=== PATIENT | female | born 1935 | race Caucasian/White ===

== ENCOUNTER 2017-02-12 09:49 | Observation (INO) | payer OTHER ==
[~2017-02-12] VITALS: Ht 162.6 cm; Wt 54.8 kg
[~2017-02-12 09:49] MED LIST: ACETAMINOPHEN500 MG PO; ADVAIR 250/501 DISK IH; ALPRAZOLAM0.25 M2 PO; ALPRAZOLAM0.25 MG PO; BISCOLAX10 MG RC; CARDIZEM CD,CA240 M1 PO; CARDIZEM CD,CA240 MG PO; CARDIZEM CD240 MG PO; COL-RITE100 MG PO; COLACE100 MG PO; COMBIVENT INH14.7 GM IH; COMBIVENT RESPIM4 GM IH; COMBIVENT200 INHALA IH; COUMADIN,JANTO2.5 MG PO; COUMADIN,JANTOVE5 MG PO; Cardizem CD,Cartia X PO; Colace PO; DIGITEK125 MC2 PO; DIGOX125 MCG; DIGOX125 MCG PO; DIGOXIN125 MCG PO; DILTIAZEM; DILTIAZEM 24HR240 MG PO; DOCUSATE SODIU100 MG PO; FLOVENT 11120 INHALA IH; FLOVENT DISKUS1 DISK IH; FLOVENT DISKUS50 MCG IH; FORADIL AEROLI12 MCG IH; HYDROCHLOROTHIA25 MG PO; INCRUSE ELLI62.5 MCG IH; JANUVIA100 MG PO; K-DUR20 MEQ PO; KLOR-CON20 MEQ; KLOR-CON20 MEQ PO; LANOXIN125 MCG PO; LANSOPRAZOLE15 MG PO; LEVAQUIN500 MG PO; LEVOFLOXACIN500 MG PO; LIPITOR20 MG PO; Lanoxin,Digitek PO; Levaquin PO; MIRALAX17 GM PO; MIRTAZAPINE15 MG PO; MIRTAZAPINE7.5 MG PO; NEXIUM40 MG PO; PANTOPRAZOLE SO40 MG PO; POTASSIUM; PRADAXA150 MG PO; PREDNISONE10 MG PO; PREDNISONE50 MG PO; PREVACID 24HR15 MG PO; PRILOSEC20 MG PO; PROTONIX40 MG PO; PROVENTIL,2.5 MG/3 M IH; PROVENTIL2.5 MG/3 M IH; Pradaxa PO; REMERON15 M2 PO; SCOT-TUSSI10 MG/5 ML PO; SIMVASTATIN40 MG PO; SPIRIVA RESPIMAT4 GM IH; SPIRIVA1 INHALATI IH; STOOL SOFTENER100 MG PO; TRAMADOL HCL50 MG PO; TYLENOL EXTRA500 MG PO; WOMENS STOOL S100 MG PO; XANAX0.25 MG PO; XARELTO15 MG PO; Xarelto PO; ZOFRAN ODT4 MG PO; ZOLOFT25 MG PO; ZYRTEC10 M3 PO
[2017-02-12] MEDS ORDERED: ELIQUIS5 MG PO (10:30)
[2017-02-12 10:31] LABS: EOSINOPHIL (%) 0.8 % (0-5); EOSINOPHIL COUNT 0.1 K/uL (0-0.3); HEMATOCRIT 36.9 % (36.0-46.0); IMMATURE GRANULOCYTE (%) 0.5 % (0.0-0.7); INSTRUMENT ABS NEUTROPHIL CT 5.2 K/uL; LYMPHOCYTE COUNT 2.2 K/uL (1.0-2.8); MCH 23.8 PG (29.0-34.0); MCHC 30.6 G/DL (30.0-36.0); MCV 77.7 FL (83-99); MEAN PLAT.VOLUME 9.3 uM^3 (9.5-12.4); MONOCYTE (%) 12.9 % (3-12); MONOCYTE COUNT 1.1 K/uL (0-0.8); NEUTROPHIL COUNT 5.2 K/uL (1.8-6.4); PLATELET COUNT 263 K/uL (156-360); RBC DIS.WIDTH-CV 16.5 % (11.8-14.6); RBC DIS.WIDTH-SD 46.3 % (39-53); RED BLOOD COUNT 4.75 M/uL (3.80-5.20); WHITE BLOOD COUNT 8.7 K/uL (4.1-10.2)
[2017-02-12 10:39] LABS: CHLORIDE 101 mEq/L (99-109); POTASSIUM 5.1 mEq/L (3.7-5.4); SODIUM 138 mEq/L (136-147)
[2017-02-12 10:40] LABS: D-DIMER ELISA 0.37 mg/L FEU (< 0.57); INTER. NORMALIZED RATIO 1.1; PROTHROMBIN TIME 11.3 (9.2-11.2); PTT 30.8 (25-32)
[2017-02-12 10:41] LABS: GLUCOSE 123 mg/dL (70-99)
[2017-02-12 10:42] LABS: ANION GAP 10 MEQ/L (2-14)
[2017-02-12 10:45] LABS: GFR ESTIMATE (CALCULATED) > 59 mL/min/
[2017-02-12 10:46] LABS: UREA NITROGEN (BUN) 10 mg/dL (9-23)
[2017-02-12 10:49] LABS: TROP-I INTERPRETATION NEGATIVE; TROPONIN-I 0.01 ng/mL (0.0-0.30)
[2017-02-12] MEDS ORDERED: DILTIAZEM 24HR240 MG PO (12:18)
[2017-02-12] MEDS ORDERED: ONDANSETRON ODT4 MG PO (12:21)
[2017-02-12] MEDS ORDERED: MIRTAZAPINE7.5 MG PO (12:22)
[2017-02-12] MEDS ORDERED: SALINE NASAL SP45 ML BOTH NARES (12:22)
[2017-02-12] MEDS ORDERED: ZYRTEC10 M3 PO (12:22)
[2017-02-12 12:55] VITALS: BP 167/75
[2017-02-12 15:27] VITALS: BP 138/81
[2017-02-12 17:27] LABS: POINT-OF-CARE METER ID UU13113831
[2017-02-12 17:55] LABS: TROP-I INTERPRETATION NEGATIVE; TROPONIN-I 0.02 ng/mL (0.0-0.30)
[2017-02-12 19:20] VITALS: BP 138/61
[2017-02-12 21:24] LABS: POINT-OF-CARE METER ID UU14162513
[2017-02-12 23:29] LABS: TROP-I INTERPRETATION NEGATIVE; TROPONIN-I < 0.01 ng/mL (0.0-0.30)
[2017-02-13 00:09] VITALS: BP 126/61
[2017-02-13 04:15] VITALS: BP 144/73
[2017-02-13 07:16] VITALS: BP 142/68
[2017-02-13 08:08] LABS: POINT-OF-CARE METER ID UU13113831
[2017-02-13 08:14] VITALS: BP 144/75
[2017-02-13 09:10] VITALS: BP 128/69
[2017-02-13] MEDS ORDERED: PREDNISONE10 MG PO (09:38)
[2017-02-13] MEDS ORDERED: LEVOFLOXACIN750 MG PO (09:38)
== END 2017-02-13 11:21 | disposition home or self-care (01) ==
LOC: EME 09:49 → EDOF 12:11 → 5WEST 12:11 → EDOF 12:11 → 5WEST 12:49
PROVIDERS: Emergency Medicine; Family Medicine; Internal Medicine
DX: J44.1 Chronic obstructive pulmonary disease with (acute) exacerbation (principal); J44.0 Chronic obstructive pulmonary disease with (acute) lower respiratory infection; J20.9 Acute bronchitis, unspecified; J45.901 Unspecified asthma with (acute) exacerbation; D64.9 Anemia, unspecified; E11.9 Type 2 diabetes mellitus without complications; I10 Essential (primary) hypertension; E78.5 Hyperlipidemia, unspecified; I48.91 Unspecified atrial fibrillation; K21.9 Gastro-esophageal reflux disease without esophagitis; G89.29 Other chronic pain; M54.9 Dorsalgia, unspecified; F41.9 Anxiety disorder, unspecified
CPT/HCPCS: 71010; 80048; 80162; 82948; 83880; 84484; 85025; 85379; 85610; 85730; 93005; 93306; 94640; 94640 76; 99202; 99281; 99285; G0378; J1815; J2930

== ENCOUNTER 2017-06-16 20:54 | Emergency (ER) | payer OTHER ==
[~2017-06-16] VITALS: Ht 162.6 cm; Wt 52.5 kg
[~2017-06-16 20:54] MED LIST changes: +ELIQUIS5 MG PO; +LEVOFLOXACIN750 MG PO; +ONDANSETRON ODT4 MG PO; +SALINE NASAL SP45 ML BOTH NARES
[2017-06-17 01:34] LABS: HEMATOCRIT 31.7 % (36.0-46.0); MCH 22.4 PG (29.0-34.0); MCHC 29.7 G/DL (30.0-36.0); MCV 75.7 FL (83-99); PLATELET COUNT 280 K/uL (156-360); RBC DIS.WIDTH-CV 15.6 % (11.8-14.6); RBC DIS.WIDTH-SD 42.5 % (39-53); RED BLOOD COUNT 4.19 M/uL (3.80-5.20); WHITE BLOOD COUNT 10.4 K/uL (4.1-10.2)
[2017-06-17 01:46] LABS: CHLORIDE 98 mEq/L (99-109); POTASSIUM 5.1 mEq/L (3.7-5.4); SODIUM 136 mEq/L (136-147)
[2017-06-17 01:48] LABS: GLUCOSE 119 mg/dL (70-99)
[2017-06-17 01:49] LABS: ANION GAP 12 MEQ/L (2-14)
[2017-06-17 01:50] LABS: TOTAL BILIRUBIN 0.3 mg/dL (0.0-1.0)
[2017-06-17 01:52] LABS: ALKALINE PHOSPHATASE 76 IU/L (3-129); GFR ESTIMATE (CALCULATED) > 59 mL/min/
[2017-06-17 01:53] LABS: UREA NITROGEN (BUN) 13 mg/dL (9-23)
[2017-06-17 01:55] LABS: LIPASE 6 U/L (1.0-51.0)
[2017-06-17 02:28] LABS: ADD MIUA? NO; BILIRUBIN NEGATIVE; BLOOD NEGATIVE; COLOR STRAW ((YELLOW)); GLUCOSE (STRIP) NEGATIVE; KETONES NEGATIVE; LEUKOCYTES NEGATIVE; NITRITE NEGATIVE; PROTEIN (STRIP) NEGATIVE; SPECIFIC GRAVITY 1.005 (1.000-1.030); UCUL ADDED? NO; UROBILINOGEN 0.2 MG/DL (0.2-1.0)
[2017-06-17] MEDS ORDERED: ULTRAM50 MG PO (02:34)
[2017-06-17] MEDS ORDERED: LIDODERM 5% P1 PATCH TD (02:34)
[2017-06-17 03:03] VITALS: BP 128/58
== END 2017-06-17 03:04 | disposition home or self-care (01) ==
LOC: EME 20:54 → RME 20:54
PROVIDERS: Physician Assistant
DX: M54.5 Low back pain (principal); G89.29 Other chronic pain; R63.4 Abnormal weight loss; I48.91 Unspecified atrial fibrillation; Z79.01 Long term (current) use of anticoagulants; E11.9 Type 2 diabetes mellitus without complications; Z79.84 Long term (current) use of oral hypoglycemic drugs; J44.9 Chronic obstructive pulmonary disease, unspecified; E78.5 Hyperlipidemia, unspecified; K21.9 Gastro-esophageal reflux disease without esophagitis; F32.9 Major depressive disorder, single episode, unspecified
CPT/HCPCS: 71020; 72128; 80053; 81003; 83690; 85027; 99281; 99284

== ENCOUNTER 2017-07-21 08:43 | Inpatient (IN) | payer OTHER ==
[~2017-07-21] VITALS: Ht 154.9 cm; Wt 51.6 kg
[2017-07-21] VITALS (13 sets, daily range): BP systolic 132–156; BP diastolic 60–79
[~2017-07-21 08:43] MED LIST changes: +LIDODERM 5% P1 PATCH TD; +ULTRAM50 MG PO
[2017-07-21 09:52] LABS: INTER. NORMALIZED RATIO 1.5; PROTHROMBIN TIME 16.7 SEC (10.2-12.9)
[2017-07-21 09:55] LABS: PTT 35.2 SEC (25-37)
[2017-07-21 10:01] LABS: CHLORIDE 96 mEq/L (99-109); POTASSIUM 4.3 mEq/L (3.7-5.4); SODIUM 130 mEq/L (136-147)
[2017-07-21 10:03] LABS: EOSINOPHIL (%) 0.3 % (0-5); GLUCOSE 121 mg/dL (70-99); HEMATOCRIT 22.9 % (36.0-46.0); IMMATURE GRANULOCYTE COUNT 0.1 K/uL; INSTRUMENT ABS NEUTROPHIL CT 7.4 K/uL; MCH 21.1 PG (29.0-34.0); MCHC 29.7 G/DL (30.0-36.0); MCV 71.1 FL (83-99); MEAN PLAT.VOLUME 9.7 uM^3 (9.5-12.4); MONOCYTE (%) 7.7 % (3-12); MONOCYTE COUNT 0.7 K/uL (0-0.8); NEUTROPHIL (%) 80.3 % (45-76); NEUTROPHIL COUNT 7.4 K/uL (1.8-6.4); NRBC (%) 0.2 /100 WBC (0-0); PLATELET COUNT 293 K/uL (156-360); RBC DIS.WIDTH-SD 41.6 % (39-53); RED BLOOD COUNT 3.22 M/uL (3.80-5.20); WHITE BLOOD COUNT 9.3 K/uL (4.1-10.2)
[2017-07-21 10:04] LABS: ANION GAP 10 MEQ/L (2-14)
[2017-07-21 10:07] LABS: GFR ESTIMATE (CALCULATED) > 59 mL/min/; UREA NITROGEN (BUN) 11 mg/dL (9-23)
[2017-07-21 10:08] LABS: TROP-I INTERPRETATION NEGATIVE; TROPONIN-I < 0.01 ng/mL (0.0-0.30)
[2017-07-21 10:15] LABS: DIGOXIN 0.9 ng/mL (0.8-2.0)
[2017-07-21 11:46] LABS: RETIC HGB EQUIVALENT 18.3 (28-36); RETICULOCYTE COUNT 2.6 % (0.5-1.8)
[2017-07-21] MEDS ORDERED: PRILOSEC20 MG PO (11:54)
[2017-07-21] MEDS ORDERED: METFORMIN HCL500 MG PO (11:59)
[2017-07-21] MEDS ORDERED: MECLIZINE HCL25 MG PO (11:59)
[2017-07-21 12:37] LABS: IRON 18 MCG/DL (35-150); SAMPLE HEMOLYSIS CHECK 0; SAMPLE ICTERIC CHECK 0; SAMPLE LIPEMIA CHECK 0
[2017-07-21 12:50] LABS: FERRITIN 11 NG/ML (10-291)
[2017-07-21 16:51] LABS: TROP-I INTERPRETATION NEGATIVE; TROPONIN-I 0.01 ng/mL (0.0-0.30)
[2017-07-21 19:35] LABS: POINT-OF-CARE METER ID UU14174225
[2017-07-22 00:02] LABS: HEMATOCRIT 32.8 % (36.0-46.0); MCV 75.6 FL (83-99)
[2017-07-22 00:18] LABS: TROP-I INTERPRETATION NEGATIVE; TROPONIN-I < 0.01 ng/mL (0.0-0.30)
[2017-07-22 03:38] VITALS: BP 123/65
[2017-07-22 06:13] LABS: HEMATOCRIT 30.6 % (36.0-46.0); MCH 24.1 PG (29.0-34.0); MCHC 31.7 G/DL (30.0-36.0); MCV 76.1 FL (83-99); MEAN PLAT.VOLUME 9.8 uM^3 (9.5-12.4); NRBC (%) 0.2 /100 WBC (0-0); PLATELET COUNT 255 K/uL (156-360); RBC DIS.WIDTH-CV 18.4 % (11.8-14.6); RBC DIS.WIDTH-SD 50.3 % (39-53); WHITE BLOOD COUNT 9.1 K/uL (4.1-10.2)
[2017-07-22 06:28] LABS: RED BLOOD COUNT 4.02 M/uL (3.80-5.20)
[2017-07-22 06:49] LABS: ANION GAP 9 MEQ/L (2-14); CHLORIDE 98 MEQ/L (99-109); GFR ESTIMATE (CALCULATED) > 59 mL/min/; GLUCOSE 133 mg/dL (70-99); POTASSIUM 4.2 MEQ/L (3.7-5.4); SAMPLE HEMOLYSIS CHECK 0; SAMPLE ICTERIC CHECK 0; SAMPLE LIPEMIA CHECK 0; UREA NITROGEN (BUN) 13 mg/dL (9-23)
[2017-07-22 06:50] LABS: SODIUM 138 MEQ/L (136-147)
[2017-07-22 07:32] LABS: POINT-OF-CARE METER ID UU14188625
[2017-07-22 07:33] VITALS: BP 125/67
[2017-07-22 11:09] VITALS: BP 124/58
[2017-07-22 11:12] LABS: POINT-OF-CARE METER ID UU13113717
[2017-07-22 14:30] VITALS: BP 122/62
[2017-07-22 17:15] LABS: POINT-OF-CARE METER ID UU13113819
[2017-07-22 18:15] LABS: POINT-OF-CARE METER ID UU14188625
[2017-07-22 20:00] VITALS: BP 124/62
[2017-07-23 00:01] VITALS: BP 123/65
[2017-07-23 03:53] VITALS: BP 130/70
[2017-07-23 08:18] VITALS: BP 131/62
[2017-07-23 09:54] LABS: HEMATOCRIT 39.2 % (36.0-46.0); MCH 23.8 PG (29.0-34.0); MCHC 30.9 G/DL (30.0-36.0); MEAN PLAT.VOLUME 9.3 uM^3 (9.5-12.4); RBC DIS.WIDTH-CV 18.6 % (11.8-14.6); RBC DIS.WIDTH-SD 49.5 % (39-53); WHITE BLOOD COUNT 14.1 K/uL (4.1-10.2)
[2017-07-23 10:04] LABS: PLATELET COUNT 346 K/uL (156-360); RED BLOOD COUNT 5.09 M/uL (3.80-5.20)
[2017-07-23 10:11] LABS: ANION GAP 12 MEQ/L (2-14); CHLORIDE 96 MEQ/L (99-109); GFR ESTIMATE (CALCULATED) > 59 mL/min/; GLUCOSE 120 mg/dL (70-99); POTASSIUM 4.6 MEQ/L (3.7-5.4); SAMPLE HEMOLYSIS CHECK 0; SAMPLE ICTERIC CHECK 0; SAMPLE LIPEMIA CHECK 0; SODIUM 139 MEQ/L (136-147); UREA NITROGEN (BUN) 13 mg/dL (9-23)
[2017-07-23 11:21] VITALS: BP 136/67
[2017-07-23 15:55] LABS: POINT-OF-CARE METER ID UU13113675
[2017-07-23 16:55] LABS: POINT-OF-CARE METER ID UU13113717
[2017-07-23 20:03] VITALS: BP 137/65
[2017-07-24] VITALS: BP 119/73
[2017-07-24 03:52] VITALS: BP 119/66
[2017-07-24 07:22] VITALS: BP 124/56
[2017-07-24 07:39] LABS: POINT-OF-CARE METER ID UU14174225
[2017-07-24] MEDS ORDERED: FERROUS SULFAT325 MG PO (14:53)
[2017-07-24] MEDS ORDERED: LIDOCAINE1 EACH TD (14:56)
[2017-07-24 15:07] VITALS: BP 111/62
== END 2017-07-24 16:36 | disposition home or self-care (01) | DRG 292 ==
LOC: EME 08:43 → EDOF 11:20 → 5SOUTH 11:20 → ENRESERV 11:28 → 5SOUTH 13:36
PROVIDERS: Emergency Medicine; Internal Medicine; Specialist
DX: I11.0 Hypertensive heart disease with heart failure (principal); I50.9 Heart failure, unspecified; D50.9 Iron deficiency anemia, unspecified; K29.70 Gastritis, unspecified, without bleeding; K31.7 Polyp of stomach and duodenum; K55.20 Angiodysplasia of colon without hemorrhage; K64.8 Other hemorrhoids; J44.9 Chronic obstructive pulmonary disease, unspecified; I48.1 Persistent atrial fibrillation; I08.1 Rheumatic disorders of both mitral and tricuspid valves; I27.2 Other secondary pulmonary hypertension; E11.9 Type 2 diabetes mellitus without complications; E78.5 Hyperlipidemia, unspecified; K21.9 Gastro-esophageal reflux disease without esophagitis; F41.9 Anxiety disorder, unspecified; F32.9 Major depressive disorder, single episode, unspecified; M19.90 Unspecified osteoarthritis, unspecified site; Z77.22 Contact with and (suspected) exposure to environmental tobacco smoke (acute) (chronic); Z79.84 Long term (current) use of oral hypoglycemic drugs; Z82.49 Family history of ischemic heart disease and other diseases of the circulatory system; Z83.3 Family history of diabetes mellitus
CPT/HCPCS: 71010; 71020; 74250; 80048; 80162; 82272; 82607; 82728; 82746; 82948; 83540; 83880; 84466; 84484; 85014; 85018; 85025; 85027; 85045; 85610; 85730; 86870; 86900; 86901; 86905; 86920; 88305; 88342 TC; 93005; 93306; 94640; 94640 76; 94760; 94799; 99202; 99281; 99284; C9113; J1815; J1940; P9016

== ENCOUNTER 2018-02-09 06:40 | Inpatient (IN) | payer OTHER ==
[~2018-02-09] VITALS: Ht 162.6 cm; Wt 47.4 kg
[~2018-02-09 06:40] MED LIST changes: +FERROUS SULFAT325 MG PO; +LIDOCAINE1 EACH TD; +MECLIZINE HCL25 MG PO; +METFORMIN HCL500 MG PO
[2018-02-09 07:23] LABS: BASOPHIL (%) 0.2 % (0-1); EOSINOPHIL (%) 0.7 % (0-5); EOSINOPHIL COUNT 0.1 K/uL (0-0.3); HEMATOCRIT 43.7 % (36.0-46.0); IMMATURE GRANULOCYTE (%) 0.4 % (0.0-0.7); LYMPHOCYTE (%) 31.3 % (15-42); LYMPHOCYTE COUNT 2.8 K/uL (1.0-2.8); MCH 28.9 PG (29.0-34.0); MCHC 34.3 G/DL (30.0-36.0); MCV 84.2 FL (83-99); MONOCYTE (%) 10.6 % (3-12); NEUTROPHIL (%) 56.8 % (45-76); NEUTROPHIL COUNT 5.1 K/uL (1.8-6.4); PLATELET COUNT 256 K/uL (156-360); RBC DIS.WIDTH-CV 13.3 % (11.8-14.6); RBC DIS.WIDTH-SD 41.3 % (39-53); RED BLOOD COUNT 5.19 M/uL (3.80-5.20); WHITE BLOOD COUNT 9.1 K/uL (4.1-10.2)
[2018-02-09 07:29] LABS: INTER. NORMALIZED RATIO 1.6
[2018-02-09 07:32] LABS: PTT 38.9 SEC (25-37)
[2018-02-09 07:41] LABS: CHLORIDE 101 mEq/L (99-109); POTASSIUM 3.9 mEq/L (3.7-5.4); SODIUM 140 mEq/L (136-147)
[2018-02-09 07:43] LABS: GLUCOSE 119 mg/dL (70-99)
[2018-02-09 07:45] LABS: TROP-I INTERPRETATION NEGATIVE; TROPONIN-I < 0.01 ng/mL (0.0-0.30)
[2018-02-09 07:47] LABS: CREATININE 0.8 mg/dL (0.6-1.3); GFR ESTIMATE (CALCULATED) > 59 mL/min/
[2018-02-09 07:48] LABS: UREA NITROGEN (BUN) 11 mg/dL (9-23)
[2018-02-09 07:55] LABS: DIGOXIN 0.7 ng/mL (0.8-2.0)
[2018-02-09] MEDS ORDERED: LIDOCARE1 EACH TP (09:03)
[2018-02-09] MEDS ORDERED: WOMEN'S 50 PLU1 EACH PO (09:06)
[2018-02-09] MEDS ORDERED: ELIQUIS5 MG PO (09:06)
[2018-02-09] MEDS ORDERED: PROBIOTIC1 EAC1 PO (09:07)
[2018-02-09 12:29] LABS: TROP-I INTERPRETATION NEGATIVE; TROPONIN-I < 0.01 ng/mL (0.0-0.30)
[2018-02-09 14:45] LABS: APPEARANCE CLEAR ((CLEAR)); BILIRUBIN NEGATIVE; BLOOD NEGATIVE; COLOR YELLOW ((YELLOW)); GLUCOSE (STRIP) NEGATIVE; KETONES 20; LEUKOCYTES NEGATIVE; NITRITE NEGATIVE; PROTEIN (STRIP) 30; SPECIFIC GRAVITY 1.009 (1.000-1.030); UCUL ADDED? NO; UROBILINOGEN 0.2 MG/DL (0.2-1.0)
[2018-02-09 15:35] VITALS: BP 139/74
[2018-02-09 19:10] VITALS: BP 161/84
[2018-02-09 20:27] LABS: TROP-I INTERPRETATION NEGATIVE; TROPONIN-I < 0.01 ng/mL (0.0-0.30)
[2018-02-09 23:20] VITALS: BP 142/63
[2018-02-10 04:36] VITALS: BP 120/59
[2018-02-10 05:31] LABS: HEMATOCRIT 41.8 % (36.0-46.0); MCH 28.2 PG (29.0-34.0); MCHC 33.5 G/DL (30.0-36.0); MCV 84.1 FL (83-99); PLATELET COUNT 287 K/uL (156-360); RBC DIS.WIDTH-CV 13.3 % (11.8-14.6); RBC DIS.WIDTH-SD 41.1 % (39-53); RED BLOOD COUNT 4.97 M/uL (3.80-5.20)
[2018-02-10 06:02] LABS: CHLORIDE 98 MEQ/L (99-109); CREATININE 0.8 MG/DL (0.6-1.3); GFR ESTIMATE (CALCULATED) > 59 mL/min/; GLUCOSE 158 mg/dL (70-99); POTASSIUM 4.2 MEQ/L (3.7-5.4); SODIUM 135 MEQ/L (136-147)
[2018-02-10 06:03] LABS: UREA NITROGEN (BUN) 23 mg/dL (9-23)
[2018-02-10 09:06] VITALS: BP 116/65
[2018-02-10 12:22] VITALS: BP 122/60
[2018-02-10] MEDS ORDERED: DUONEB 2.5-0.5 M3 ML AEROSOL (13:15)
[2018-02-10] MEDS ORDERED: PREDNISONE20 MG PO (13:17)
== END 2018-02-10 14:40 | disposition home or self-care (01) | DRG 308 ==
LOC: EME → EDBD 06:40 → EME 06:40 → EDOF 08:43 → ENRESERV 08:44 → 4EAST 15:13 → ENPENDDIS 02-10 → 4EAST 02-10 14:40
PROVIDERS: Emergency Medicine; Internal Medicine
DX: I48.0 Paroxysmal atrial fibrillation (principal); J96.01 Acute respiratory failure with hypoxia; J44.1 Chronic obstructive pulmonary disease with (acute) exacerbation; I11.0 Hypertensive heart disease with heart failure; I50.30 Unspecified diastolic (congestive) heart failure; I27.20 Pulmonary hypertension, unspecified; R07.89 Other chest pain; E11.9 Type 2 diabetes mellitus without complications; K21.9 Gastro-esophageal reflux disease without esophagitis; Z77.22 Contact with and (suspected) exposure to environmental tobacco smoke (acute) (chronic); R42 Dizziness and giddiness; E78.5 Hyperlipidemia, unspecified; F32.9 Major depressive disorder, single episode, unspecified; F41.9 Anxiety disorder, unspecified; Z91.14 Patient's other noncompliance with medication regimen; Z79.01 Long term (current) use of anticoagulants; Z79.84 Long term (current) use of oral hypoglycemic drugs; Z80.9 Family history of malignant neoplasm, unspecified; Z88.6 Allergy status to analgesic agent; Z82.49 Family history of ischemic heart disease and other diseases of the circulatory system
CPT/HCPCS: 71045; 80048; 80053; 80061; 80162; 81003; 82140; 82607; 82746; 82948; 83036; 83605; 83735; 83880; 84100; 84484; 85025; 85027; 85610; 85652; 85730; 86038; 86140; 87040; 87389; 93005; 93306; 94640; 94640 76; 99202; 99281; 99285; J2060; J7050; J7512

== ENCOUNTER 2018-05-10 07:49 | Observation (INO) | payer OTHER ==
[~2018-05-10] VITALS: Ht 161.3 cm; Wt 63.1 kg
[~2018-05-10 07:49] MED LIST changes: +DUONEB 2.5-0.5 M3 ML AEROSOL; +LIDOCARE1 EACH TP; +PREDNISONE20 MG PO; +PROBIOTIC1 EAC1 PO; +WOMEN'S 50 PLU1 EACH PO
[2018-05-10 08:42] LABS: HEMATOCRIT 36.5 % (36.0-46.0); HEMOGLOBIN 12.3 G/DL (11.9-15.5); MCH 28.5 PG (29.0-34.0); MCHC 33.7 G/DL (30.0-36.0); MCV 84.5 FL (83-99); PLATELET COUNT 248 K/uL (156-360); RBC DIS.WIDTH-CV 13.8 % (11.8-14.6); RED BLOOD COUNT 4.32 M/uL (3.80-5.20); WHITE BLOOD COUNT 9.3 K/uL (4.1-10.2)
[2018-05-10 08:50] LABS: ALBUMIN 4.6 g/dL (3.2-4.8); CHLORIDE 100 mEq/L (99-109); POTASSIUM 4.9 mEq/L (3.7-5.4); SODIUM 136 mEq/L (136-147)
[2018-05-10 08:53] LABS: GLUCOSE 128 mg/dL (70-99)
[2018-05-10 08:55] LABS: TOTAL BILIRUBIN 0.6 mg/dL (0.0-1.0)
[2018-05-10 08:56] LABS: ALKALINE PHOSPHATASE 93 IU/L (3-129); CREATININE 0.8 mg/dL (0.6-1.3); GFR ESTIMATE (CALCULATED) > 59 mL/min/
[2018-05-10 08:57] LABS: UREA NITROGEN (BUN) 12 mg/dL (9-23)
[2018-05-10 08:58] LABS: TROP-I INTERPRETATION NEGATIVE; TROPONIN-I 0.01 ng/mL (0.0-0.30)
[2018-05-10 08:58] LABS: AST (GOT) 17 IU/L (2-34)
[2018-05-10 08:59] LABS: ALT (GPT) 16 IU/L (3-49)
[2018-05-10 09:00] LABS: LIPASE 6 U/L (1.0-51.0)
[2018-05-10] MEDS ORDERED: FERROUS SULFAT325 MG PO (10:26)
[2018-05-10] MEDS ORDERED: FLONASE16 G1 BOTH NARES (10:28)
[2018-05-10 12:23] VITALS: BP 145/64
[2018-05-10 14:38] LABS: TROP-I INTERPRETATION NEGATIVE; TROPONIN-I < 0.01 ng/mL (0.0-0.30)
[2018-05-10 16:31] VITALS: BP 118/57
[2018-05-10 18:53] VITALS: BP 151/65
[2018-05-10 20:52] LABS: TROP-I INTERPRETATION NEGATIVE; TROPONIN-I < 0.01 ng/mL (0.0-0.30)
[2018-05-10 23:49] VITALS: BP 132/79
[2018-05-11 03:52] VITALS: BP 141/67
[2018-05-11] MEDS ORDERED: CEPHALEXIN500 MG PO (08:51)
== END 2018-05-11 10:25 | disposition home or self-care (01) ==
LOC: EME 07:49 → 4SOUTH 09:50 → EDOF 09:50 → ENRESERV 09:51 → 4SOUTH 12:22
PROVIDERS: Physician Assistant; Physician Assistant Medical
DX: R07.89 Other chest pain (principal); L03.115 Cellulitis of right lower limb; I48.1 Persistent atrial fibrillation; R94.31 Abnormal electrocardiogram [ECG] [EKG]; J44.9 Chronic obstructive pulmonary disease, unspecified; R60.0 Localized edema; E11.9 Type 2 diabetes mellitus without complications; F41.9 Anxiety disorder, unspecified; F32.9 Major depressive disorder, single episode, unspecified; M19.90 Unspecified osteoarthritis, unspecified site; K21.9 Gastro-esophageal reflux disease without esophagitis; Z77.22 Contact with and (suspected) exposure to environmental tobacco smoke (acute) (chronic); Z82.49 Family history of ischemic heart disease and other diseases of the circulatory system; Z79.01 Long term (current) use of anticoagulants; Z79.84 Long term (current) use of oral hypoglycemic drugs; Z88.6 Allergy status to analgesic agent; Z88.5 Allergy status to narcotic agent; Z88.1 Allergy status to other antibiotic agents; Z88.8 Allergy status to other drugs, medicaments and biological substances
CPT/HCPCS: 71046; 71275; 80053; 83690; 84484; 85027; 93005; 93971; 94640; 94760; 94799; 99202; 99281; 99285; G0378; J1940